=== PATIENT | female | born 1930 | race Caucasian/White ===

== ENCOUNTER 2016-05-30 12:36 | Emergency (ER) | payer MEDICARE, OTHER ==
[~2016-05-30] VITALS: Ht 167.6 cm; Wt 81.4 kg
[~2016-05-30 12:36] MED LIST: CITA20TA PO; ONDA4TAB9 PO
[2016-05-30 12:41] VITALS: BP 188/89; PULSE 101; RESP 16; O2SAT 97
[2016-05-30] MEDS ORDERED: NAPR500T5 PO (12:48)
[2016-05-30] MEDS ORDERED: METH5TAB5 PO (12:48)
[2016-05-30] MEDS ORDERED: LORA0.5T PO (13:18)
[2016-05-30] MEDS ORDERED: ZOLP5TAB6 PO (13:18)
[2016-05-30] MEDS ORDERED: OMEG-38 PO (13:18)
[2016-05-30] MEDS ORDERED: DICL100G8 TOPICAL (13:18)
[2016-05-30] MEDS ORDERED: ASCO500T35 PO (13:18)
[2016-05-30 14:12] LABS: BASOPHILS % (AUTO) 0.3 % (0-3); EOSINOPHILS % (AUTO) 1.2 % (0-5); MONOCYTES % (AUTO) 9.4 % (4-12); Mean Corpuscular Hemoglobin 30.7 pg (27.0-35.0); Mean Corpuscular Volume 88.8 fL (81-100); NEUTROPHILS % (AUTO) 70.9 % (40-74); Platelet Count 215 bil/L (150-400)
[2016-05-30 14:39] LABS: TROPONIN T < 0.010 ug/L (0.0-0.011)
[2016-05-30 14:47] VITALS: BP 204/94; PULSE 102; RESP 18; O2SAT 99
[2016-05-30 14:48] VITALS: BP 208/85; PULSE 104; RESP 23; O2SAT 99
[2016-05-30] MEDS ORDERED: LORazepam 0.5 mg Tablet PO ONE (15:15)
--- NOTE | 2016-05-30 15:15 | DRSVH ---
PROCEDURE: X-RAY CHEST, TWO VIEWS ([id number]) INDICATIONS: left arm pain, dizziness TECHNIQUE: 2 views of the chest were acquired. COMPARISON: None. FINDINGS: Surgical changes and devices: None. Lungs and pleura: No pleural effusions or pneumothorax. Lungs are clear, aside from mild bibasilar scarring. Mediastinum: Mediastinal contours are normal. Heart size is normal. Bones and chest wall: No suspicious bony abnormalities. Soft tissues appear unremarkable. IMPRESSION: No acute cardiopulmonary disease. Dictated by: [facility] Interpreted: Cinda Cason MD on 05/30/2016 at 15:14 Transcribed by: NASH on 05/30/2016 at 15:15 Approved by: Cinda Cason MD, PhD on 05/30/2016 at 17:02
--- NOTE | 2016-05-30 15:35 | ED.REPORT ---
HPI-General Illness Date of Service May 30, 2016 ED Provider: Gely Mathis MD History of Present Illness: Robe Gerber is a 85 year old woman with a PMH of HTN though she hasn't taken any HTN meds for 15+ years, anxiety, hypothyroidism, and osteoarthritis who presents with a 1 day history of elevated blood pressure in the 190-200/90-100 range. She keeps meticulous logs of her blood pressure and has been noticing a steady upward trend over the past few months. She denies chest pain, SOB, new medications, nausea, abdmominal pain, headache, or visual changes. Nursing Notes Stated Complaint: HIGH BLOOD PRESSURE/SENT FROM URGENT CARE Chief Complaint: General Complaint Allergies: Coded Allergies: cortisone (Verified Allergy, Unknown, allergic rx to one type of cortisone shot for chronic pain, 05/30/16) chronic arthritic pain Scheduled Ascorbate Calcium (Calcium Ascorbate) 500 Mg Tablet 500 MG PO DAILY Methimazole (Methimazole) 5 Mg Tablet 2.5 MG PO DAILY Metoprolol Tartrate (Metoprolol Tartrate) 25 Mg Tablet 25 MG PO BID [place]-3/Dha/Epa/Fish Oil (Fish Oil 1,000 mg Softgel) 1 Each Capsule 1 EACH PO BID Scheduled PRN Diclofenac Gel (Voltaren Gel) 100 Gm Tube 1 APPLIC TOPICAL QID PRN PRN For Pain Lorazepam (Lorazepam) 0.5 Mg Tablet 0.5-1 MG PO DAILY PRN PRN For Anxiety Lorazepam (Ativan) 1 Mg Tablet 1 MG PO HS PRN PRN For Insomnia Naproxen (Naproxen) 500 Mg Tablet.dr 500 MG PO BID PRN PRN For Pain Zolpidem (Zolpidem) 5 Mg Tablet 5 MG PO HS PRN PRN For Insomnia General Time Seen by MD: 15:15 Chief Complaint Other (high blood pressure) Past Medical History Past Medical History Notes: She was seen in the emergency department August 2012 for similar symptoms today having developed palpitations, shaky, flushed, hypertension following a cortisone injection Past Medical History Hyperthyroidism Hypertension Osteoarthritis History of possible thyroid Past Surgical History Reports: Cholecystectomy, Hysterectomy Smoking History Former Smoker Social History Alcohol Use: Denies alcohol use Drug Use: Denies drug use Other Social History: Good social support Ambulatory Status Independent Review of Systems Full Review of Systems Constitutional: Reports: Fatigue Complete sys rev & neg: except as marked. Physical Exam GEN: A/O x3, pleasant cooperative woman appearing younger than stated age Neck: supple, non-tender, thyroid slightly boggy HEENT: PERRL, EOMI, mucous membranes pink and moist CV: RRR, no murmurs rubs or gallops Resp: Lungs CTA BL, no wheezing rales or rhonchi Abdomen: soft, non-tender, no organomegally Extr: No cyanosis clubbing or edema. BL osteo-arthritis of hands and right knee. Neuro: CN 2-12 grossly intact, no focal neurologic deficit Vital Signs Vital Signs Date Time Temp Pulse Resp B/P Pulse Ox O2 Delivery O2 Flow Rate FiO2 05/30/16 16:25 65 162/81 05/30/16 14:48 104 23 208/85 99 Room Air 05/30/16 14:47 102 18 204/94 99 Room Air 05/30/16 12:41 36.2 101 16 188/89 97 Room Air Initial VS: Reviewed Interpretation & Diagnostics Lab Results Interpretation Result Diagram: 05/30/16 1400 05/30/16 1400 Test 05/30/16 14:00 White Blood Count 6.0th/mm3 (3.8-10.1) Red Blood Count 4.73mil/mm3 (3.90-5.20) Hemoglobin 14.5g/dL (12.0-15.6) Hematocrit 42.0% (35.0-46.0) Mean Corpuscular Volume 88.8fL (81-100) Mean Corpuscular Hemoglobin 30.7pg (27.0-35.0) Mean Corpuscular Hemoglobin Concent 34.5% (32.0-37.0) Red Cell Distribution Width 13.1% (12.3-15.4) Platelet Count 215bil/L (150-400) Neutrophils (%) (Auto) 70.9% (40-74) Lymphocytes (%) (Auto) 18.0% (14-46) Monocytes (%) (Auto) 9.4% (4-12) Eosinophils (%) (Auto) 1.2% (0-5) Basophils (%) (Auto) 0.3% (0-3) Sodium Level 137mEq/L (134-144) Potassium Level 4.0mEq/L (3.5-5.2) Chloride Level 101mEq/L (97-108) Carbon Dioxide Level 21mmol/L (18-29) Blood Urea Nitrogen 18mg/dL (8-27) Creatinine 0.82mg/dL (0.57-1.00) Estimat Glomerular Filtration Rate 94mL/min (>59) Glucose Level 111mg/dL (60-99) Calcium Level 9.6mg/dL (8.5-10.1) Magnesium Level 2.0mg/dL (1.6-2.6) Total Bilirubin 0.5mg/dL (0.0-1.2) Aspartate Amino Transf (AST/SGOT) 25U/L (0-50) Alanine Aminotransferase (ALT/SGPT) 21U/L (0-32) Alkaline Phosphatase 109U/L (25-165) Troponin T < 0.010ug/L (0.0-0.011) Total Protein 6.9g/dL (6.4-8.4) Albumin 4.2g/dL (3.4-5.0) Thyroid Stimulating Hormone (TSH) 1.520uIU/mL (0.450-4.500) Free Thyroxine 1.15ng/dL (0.82-1.77) Re-Eval/Medical Decision Med Decision/Clinical Course Initial ECG and laboratory examination unremarkable. Patient was given Metoprolol 25 mg and Ativan 0.5 mg; follow up evaluation revealed BP at 160/82, then 148/72. Patient was DC with a script for Metoprolol and Ativan and instructed to establish care with a PCP for further evaluation Counseled Regarding: Diagnosis, Lab results, Need for follow-up, When/why to return to ED Discharge & Departure Shift Change Sign-Out Patient Care Transferred: No Discussed Complaint(s): Yes Laboratory Evaluation: Lab evaluation discussed Imaging Studies: Imaging discussed Response to Therapy: Improved Primary Impression: Hypertensive urgency Disposition: Home Discharge Condition All VS Reviewed: Yes Condition: Stable Patient Instructions: Chronic Hypertension (ED) Additional Instructions: If you start to have any chest pain, you become sweaty, have nausea or abdominal pain; or if you notice any changes in speech, facial asymmetry, changes in vision, or weakness in your arms and legs then please come back to the ED for further evaluation. Please establish care with a primary care physician for further termite helper management of your blood pressure. Referrals: Mary Kay Rogers MD (PCP) Attending Statement Patient seen and examined Agreement with assessment and plan as above Improved with blood pressure down a bit copies to: Mary Kay Rogers MD, David E DO May 30, 2016 15:23 Gely Mathis MD May 30, 2016 17:11
[2016-05-30 16:25] VITALS: BP 162/81; PULSE 65
[2016-05-30] MEDS ORDERED: LORA-303 PO (16:53)
[2016-05-30] MEDS ORDERED: METO25TA6 PO (16:53)
== END 2016-05-30 17:00 | disposition home or self-care (01) ==
LOC: SED 12:36
DX: I16.0 Hypertensive urgency (principal); E05.90 Thyrotoxicosis, unspecified without thyrotoxic crisis or storm; Z87.891 Personal history of nicotine dependence